=== PATIENT | male | born 1970 | race African-American/Black ===

== ENCOUNTER 2022-07-23 07:37 | Emergency (ER) | payer MEDICAID, OTHER ==
[2022-07-23 08:12] VITALS: BP 137/89; PULSE 73
== END 2022-07-23 09:01 | disposition other institution (70) ==
LOC: LB.ED 07:37
DX: S99.912A Unspecified injury of left ankle, initial encounter (principal); I10 Essential (primary) hypertension; F17.210 Nicotine dependence, cigarettes, uncomplicated; E66.9 Obesity, unspecified; Z68.41 Body mass index [BMI] 40.0-44.9, adult; Z88.8 Allergy status to other drugs, medicaments and biological substances; Z79.899 Other long term (current) drug therapy; W11.XXXA Fall on and from ladder, initial encounter
CPT/HCPCS: 73610-LT; 99283

== ENCOUNTER 2022-11-06 09:17 | Emergency (ER) | payer MEDICAID ==
[2022-11-06] MEDS: Furosemide 40 MG/4 ML VIAL IVPUSH ONE (09:46)
[2022-11-06 09:52] LABS: BASOPHILS ABSOLUTE AUTO 0.03 K/uL (0.02-0.10); BASOPHILS PERCENT AUTO 0.4 % (0.0-0.5); EOSINOPHILS ABSOLUTE AUTO 0.21 K/uL (0.04-0.40); HEMATOCRIT 44.2 % (40.0-54.0); HEMOGLOBIN 14.7 g/dL (13.0-18.0); LYMPHOCYTES ABSOLUTE AUTO 1.15 K/uL (1.50-4.00); LYMPHOCYTES PERCENT AUTO 16.5 % (20.0-40.0); MEAN CORPUSCULAR HEMOGLOBIN 26.1 pg (27.0-32.0); MEAN CORPUSCULAR HGB CONC 33.3 g/dL (31.0-35.0); MEAN CORPUSCULAR VOLUME 79 fL (76-96); MONOCYTES ABSOLUTE AUTO 1.09 K/uL (0.20-0.80); MONOCYTES PERCENT AUTO 15.7 % (3.0-10.0); NEUTROPHILS ABSOLUTE AUTO 4.47 K/uL (2.00-7.50); NEUTROPHILS PERCENT AUTO 64.4 % (45.0-70.0); PLATELET COUNT,PLT 213 K/uL (150-400); RED BLOOD CELL COUNT 5.63 M/uL (4.50-6.50); RED CELL DISTRIBUTION WIDTH 14.5 % (11.0-16.0)
[2022-11-06 09:53] LABS: APPEARANCE,URINE CLEAR (CLEAR); BILIRUBIN,URINE NEGATIVE (NEGATIVE); COLOR,URINE YELLOW; GLUCOSE,URINE NEGATIVE (NEGATIVE); KETONES,URINE NEGATIVE (NEGATIVE); LEUKOCYTE ESTERASE,URINE NEGATIVE (NEGATIVE); NITRITE,URINE NEGATIVE (NEGATIVE); OCCULT BLOOD,URINE NEGATIVE (NEGATIVE); PH,URINE 6.5 (5.0-8.0); PROTEIN,URINE >=300 mg/dL (NEGATIVE)
[2022-11-06 10:01] LABS: RBC,URINE 0-5 /HPF; SQUAMOUS EPITHELIAL CELLS,UR OCCASIONAL /HPF; WBC,URINE 0-5 /HPF
[2022-11-06] MEDS ORDERED: Sodium Chloride 0.9% 10 ML Syringe FLUSH PRN (10:18)
[2022-11-06 10:21] LABS: A/G RATIO 0.8 (0.8-2.0); ALBUMIN 3.2 g/dL (3.4-5.0); ANION GAP 12.2 mmol/L (5.0-15.0); BUN/CREATININE RATIO 17.4 (6-25); CALCIUM 8.2 mg/dL (8.5-10.1); CREATININE 1.09 mg/dL (0.70-1.30); EST CRCL DRUG DOSING (CG) 86.35 mL/min; POTASSIUM,K 4.2 mmol/L (3.5-5.1); TROPONIN I HIGH SENSITIVITY 16.5 pg/ml (<=60.4)
== END 2022-11-06 10:51 | disposition home or self-care (01) ==
LOC: LB.ED 09:17
DX: I11.0 Hypertensive heart disease with heart failure (principal); I50.9 Heart failure, unspecified; R80.9 Proteinuria, unspecified; E66.01 Morbid (severe) obesity due to excess calories; I45.10 Unspecified right bundle-branch block; Z68.42 Body mass index [BMI] 45.0-49.9, adult; Z86.16 Personal history of COVID-19; Z91.198 Patient's noncompliance with other medical treatment and regimen for other reason
CPT/HCPCS: 36415; 71045; 80053; 81001; 84484; 85025; 93005; 96374; 99285-25; J1940